=== PATIENT | female | born 1965 | race Caucasian/White ===

== ENCOUNTER 2020-07-31 08:04 | Emergency (ER) | payer MEDICAID, SELFPAY ==
[~2020-07-31] VITALS: Ht 160 cm; Wt 88.0 kg
[2020-07-31 08:12] VITALS: BP 121/75
[2020-07-31] MEDS ORDERED: KETOROLAC 30 MG/1 ML IM ONE (08:30)
[2020-07-31] MEDS ORDERED: OXYcodone/APAP 10/325MG TABLET PO ONE (08:30)
[2020-07-31] MEDS ORDERED: KETOROLAC 30 MG/1 ML ONE (08:49)
[2020-07-31] MEDS ORDERED: OXYcodone/APAP 10/325MG TABLET ONE (08:49)
--- NOTE | 2020-07-31 08:56 | NUR ---
medicated per emar. pt tolerated well.
== END 2020-07-31 09:04 | disposition home or self-care (01) ==
LOC: ED 08:47
DX: G89.29 Other chronic pain (principal); M25.561 Pain in right knee; Z88.5 Allergy status to narcotic agent
CPT/HCPCS: 96372; 99283; J1885

== ENCOUNTER 2020-09-15 20:07 | Emergency (ER) | payer MEDICAID ==
[~2020-09-15] VITALS: Ht 160 cm; Wt 82.0 kg
[2020-09-15 20:15] VITALS: BP 132/78
[2020-09-15] MEDS ORDERED: KETOROLAC 30 MG/1 ML IM ONE (21:30)
[2020-09-15] MEDS ORDERED: KETOROLAC 60 MG/2 ML ONE (21:31)
--- NOTE | 2020-09-15 21:36 | NUR ---
FIRE TECHNICIAN PER MAR
== END 2020-09-15 21:56 | disposition home or self-care (01) ==
LOC: ED 21:31
DX: L92.8 Other granulomatous disorders of the skin and subcutaneous tissue (principal); M25.561 Pain in right knee; G89.29 Other chronic pain
CPT/HCPCS: 96372; 99283; J1885